=== PATIENT | male | born 1950 | race African-American/Black ===

== ENCOUNTER 2018-05-08 14:28 | Inpatient (IN) | payer OTHER ==
--- NOTE | 2018-05-08 16:06 | HP ---
CIWA Score Nausea/Vomitin-No Nausea/No Vomiting Muscle Tremors: 2 Anxiety: 2 Agitation: 1-Slight > Activity Paroxysmal Sweats: 3 Orientation: 1-Uncertain about Date Tacttile Disturbances: 2-Mild Itch/Numbness/Burn Auditory Disturbances: 0-None Visual Disturbances: 0-None Headache: 0-None Present CIWA-Ar Total Score: 11 - Admission Criteria OASAS Guidelines: Admission for Medically Managed Detox: Requires at least one of the followin. CIWA greater than 12 2. Seizures within the past 24 hours 3. Delirium tremens within the past 24 hours 4. Hallucinations within the past 24 hours 5. Acute intervention needed for co occurring medical disorder 6. Acute intervention needed for co occurring psychiatric disorder 7. Severe withdrawal that cannot be handled at a lower level of care (continued vomiting, continued diarrhea, abnormal vital signs) requiring intravenous medication and/or fluids 8. Patient presents the following: Acute intervention needed for co-occurring med or psych disorder Admission Criteria Met: Admission criteria met Admission ROS [facility] Chief Complaint: alcohol detox Allergies/Adverse Reactions: Allergies Allergy/AdvReac Type Severity Reaction Status Date / Time Sulfa (Sulfonamide Allergy Mild Hives Verified 05/08/18 15:32 Antibiotics) History of Present Illness: 68 yo male with hx of nicotine, alcohol, and crack / cocaine dependence is here seeking detox. Reports needs to drink upon awakening every morning. PMHX: DMII, HTN, HDL. Denies psychiatric hx but currently takes haldol. Denies denies suicidal / homicidla idaiet of or hx odf suicide attempt. Denies visual / auditory hallucinations. Denies hx of seizures or blackouts. 13 years sobriety , reports relapse in early Exam Limitations: No Limitations - Ebola screening Have you traveled outside of the country in the last 21 days: No Have you had contact with anyone from an Ebola affected area: No Do you have a fever: No - Review of Systems Constitutional: Diaphoresis, Changes in sleep, Unintentional Wgt. Loss, Other ( " hot flashes") EENT: reports: No Symptoms Reported Respiratory: reports: No Symptoms reported Cardiac: reports: No Symptoms Reported GI: reports: Poor Fluid Intake, Indigestion, Other (gas) : reports: No Symptoms Reported Musculoskeletal: reports: Back Pain Integumentary: reports: No Symptoms Reported Neuro: reports: Tingling, Dizziness Endocrine: reports: Increased Thirst Hematology: reports: No Symptoms Reported Psychiatric: reports: Orientated x3, Anxious Other Systems: Reviewed and Negative Patient History - Patient Medical History Hx Anemia: No Hx Asthma: No Hx Chronic Obstructive Pulmonary Disease (COPD): No Hx Cancer: No Hx Cardiac Disorders: No Hx Congestive Heart Failure: No Hx Hypertension: Yes Hx Hypercholesterolemia: No Hx Pacemaker: No HX Cerebrovascular Accident: No Hx Seizures: No Hx Dementia: No Hx Diabetes: Yes Hx Gastrointestinal Disorders: No Hx Liver Disease: No Hx Genitourinary Disorders: No Hx Sexually Transmitted Disorders: No Hx Renal Disease (ESRD): No Hx Thyroid Disease: No Hx Human Immunodeficiency Virus (HIV): No (NEGATIVE IN 2011) Hx Hepatitis C: No Hx Depression: No Hx Suicide Attempt: No Hx Bipolar Disorder: No Hx Schizophrenia: No - Patient Surgical History Past Surgical History: Yes Other Surgical History: hernia repair - SITE UNKNOWN ! Anesthesia Reaction: No - PPD History Previous Implant?: No (hx PPD + and treated ) Documented Results: Negative w/o proof PPD to be Administered?: No - Smoking Cessation Smoking history: Current every day smoker Aproximately how many cigarettes per day: 10 Hx Chewing Tobacco Use: No Initiated information on smoking cessation: Yes 'Breaking Loose' booklet given: 05/08/18 - Substance & Tx. History Hx Alcohol Use: Yes Hx Substance Use: Yes Substance Use Type: Alcohol Hx Substance Use Treatment: Yes ([facility] 2012) - Substances abused Alcohol Substance route: Oral Frequency: Daily Amount used: 3 pt. vodka, Age of first use: 19 (reports drinking this amount for "couple of years") Date of last use: 05/08/18 Crack Substance route: Smoking Frequency: Daily Amount used: $40 Age of first use: 31 Date of last use: 05/07/18 Family Disease History - Family Disease History Family History: Denies Admission Physical Exam BHS - Vital Signs Vital Signs: Vital Signs - 24 hr 05/08/18 15:29 Temperature 98.1 F Pulse Rate 72 Respiratory 18 Rate Blood Pressure 147/80 - Physical General Appearance: Yes: Disheveled, Obese, Sweating, Anxious HEENTM: Yes: EOMI, Hearing grossly Normal, Normal ENT Inspection, Normocephalic , Normal Voice, GERALD, Pharynx Normal, Tm's normal, Other (cheilitis, edentulous) Respiratory: Yes: Chest Non-Tender, Lungs Clear, Normal Breath Sounds, No Respiratory Distress, No Accessory Muscle Use Neck: Yes: Within Normal Limits Breast: Yes: Breast Exam Deferred Cardiology: Yes: Regular Rhythm, Regular Rate Abdominal: Yes: Protuberent Genitourinary: Yes: Within Normal Limits Back: Yes: Normal Inspection Musculoskeletal: Yes: Back pain Extremities: Yes: Normal Capillary Refill, Normal Inspection, Normal Range of Motion, Other (+ varicose veins on b/t) Neurological: Yes: account receivable clerk II-XII NML intact, Fully Oriented, Alert, Motor Strength 5/5, Other (flat affect) Integumentary: Yes: Normal Color, Warm, Diaphoresis Lymphatic: Yes: Within Normal Limits - Diagnostic (1) Alcohol dependence with withdrawal Current Visit: Yes Status: Acute Qualifiers: Complication of substance-induced condition: uncomplicated Qualified Code(s ): F10.230 - Alcohol dependence with withdrawal, uncomplicated (2) Obese Current Visit: Yes Status: Chronic Qualifiers: Obesity classification: adult class 2 (BMI 35 - 39.9) (3) Psychiatric disorder Current Visit: Yes Status: Suspected (4) DM Diabetes mellitus type 2 Current Visit: Yes Status: Chronic (5) Essential hypertension Current Visit: Yes Status: Chronic Cleared for Admission S - Detox or Rehab S Level of Care: Medically Managed Detox Regimen/Protocol: Librium Breathalyzer - Breathalyzer Breathalyzer: 0 Urine Drug Screen - Test Device Lot number: [id number] Expiration date: 01/05/20 - Control Is test valid?: Yes - Results Drug screen NEGATIVE: No Urine drug screen results: [facility]-Cocaine Inpatient Rehab Admission - Rehab Decision to Admit Inpatient rehab admission?: No
[2018-05-08] MEDS ORDERED: MAGNESIUM CITRATE 300 ML BOTTLE PO PRN (16:19)
[2018-05-08] MEDS ORDERED: chlordiazePOXIDE HCL 25 MG CAPSULE PO PRN (16:19)
[2018-05-08] MEDS ORDERED: hydrOXYzine PAMOATE 25 MG CAPSULE (FP) PO PRN (16:19)
[2018-05-08] MEDS ORDERED: IBUPROFEN 400 MG TABLET (FP) PO PRN (16:19)
[2018-05-08] MEDS ORDERED: MAGNESIUM HYDROX 2400MG/30ML ORAL SUSPENSION 30 ML CUP PO PRN (16:19)
[2018-05-08] MEDS ORDERED: MAG HYDROX/AL HYDROX/SIMETH 30 ML UNIT-DOSE CUP PO PRN (16:19)
[2018-05-08] MEDS ORDERED: METHOCARBAMOL 500 MG TABLET PO PRN (16:19)
[2018-05-08] MEDS ORDERED: NICOTINE POLACRILEX 2 MG GUM BUC PRN (16:19)
[2018-05-08] MEDS ORDERED: MENTHOL/PHENOL 1 EACH UD MM PRN (16:19)
[2018-05-08] MEDS ORDERED: BISMUTH SUBSALICYLATE 524 MG/30 ML UD PO PRN (16:19)
[2018-05-08] MEDS ORDERED: ACETAMINOPHEN 325 MG TABLET (FP) PO PRN ×2 (16:19)
[2018-05-08] MEDS: chlordiazePOXIDE HCL 25 MG CAPSULE PO SCH (22:29)
[2018-05-08] MEDS: ATORVASTATIN CA 10 MG TABLET (FP) PO SCH (22:29)
[2018-05-08] MEDS: MELATONIN 5 MG TABLETS PO PRN (22:29)
[2018-05-08] MEDS: THIAMINE HCL 100 MG TABLET (FP) PO SCH (22:29)
[2018-05-09 00:49] LABS: EPI CELLS 1.7 /HPF (0-5); URINE APPEARANCE CLOUDY; URINE BACTERIA 3334.9 /hpf (NEGATIVE); URINE BILIRUBIN 1+ (NEGATIVE); URINE CASTS 77 /hpf (0-8); URINE COLOR DK YELLOW; URINE GLUCOSE (UA) NEGATIVE (NEGATIVE); URINE KETONE TRACE (NEGATIVE); URINE LEUK ESTERASE 2+ (NEGATIVE); URINE NITRITE POSITIVE (NEGATIVE); URINE PROTEIN TRACE (NEGATIVE); URINE RBC 2 /hpf (0-4); URINE WBC 76 /hpf (0-5)
[2018-05-09] MEDS: chlordiazePOXIDE HCL 25 MG CAPSULE PO SCH ×4 (05:12→22:09)
[2018-05-09] MEDS: metFORMIN HCL 500 MG TABLET (FP) PO SCH ×2 (07:49→17:56)
[2018-05-09 10:17] LABS: ALK PHOS 86 U/L (45-117); BILIRUBIN,TOTAL 0.6 mg/dL (0.2-1); BLOOD UREA NITROGEN 11 mg/dL (7-18); CALCIUM 8.5 mg/dL (8.5-10.1); CHLORIDE 104 mmol/L (98-107); CO2 28 mmol/L (21-32); CREATININE 0.9 mg/dL (0.55-1.3); GLUCOSE,RANDOM 126 mg/dL (74-106); POTASSIUM 3.8 mmol/L (3.5-5.1); SGOT/AST 18 U/L (15-37); SGPT/ALT 24 U/L (13-61); SODIUM 140 mmol/L (136-145); TOT PROT 6.2 g/dl (6.4-8.2)
[2018-05-09 10:19] LABS: ANION GAP 7 MMOL/L (8-16)
[2018-05-09 10:25] LABS: HEMATOCRIT 42.3 % (35.4-49); HEMOGLOBIN 13.9 GM/dL (11.7-16.9); MCHC 32.8 g/dl (32.0-35.9); MEAN CELL VOLUME 88.4 fl (80-96); MEAN PLT VOLUME 10.5 fl (7.5-11.1); PLATELET COUNT 201 K/MM3 (134-434); RBC 4.79 M/mm3 (4.00-5.60); RDW 14.7 % (11.9-15.9); WHITE BLOOD COUNT 6.4 K/mm3 (4.0-10.0)
[2018-05-09] MEDS: NICOTINE 14 MG/24 HOURS TOPICAL PATCH TD SCH (10:35)
[2018-05-09] MEDS: LISINOPRIL 20 MG TABLET (FP) PO SCH (10:35)
[2018-05-09] MEDS: PRENATAL VITAMINS W/ FOLIC ACID TABLET (FP) PO SCH (10:35)
--- NOTE | 2018-05-09 11:50 | EKG ---
Test Reason : Blood Pressure : / mmHG Vent. Rate : 073 BPM Atrial Rate : 073 BPM P-R Int : 138 ms QRS Dur : 096 ms QT Int : 418 ms P-R-T Axes : 012 006 034 degrees QTc Int : 460 ms NORMAL SINUS RHYTHM INCOMPLETE RIGHT BUNDLE BRANCH BLOCK MINIMAL VOLTAGE CRITERIA FOR LVH, MAY BE NORMAL VARIANT BORDERLINE ECG NO PREVIOUS ECGS AVAILABLE Confirmed by ALISSA GAUTHIER MD ([id number]) on 05/09/2018 11:49:59 AM Referred By: Confirmed By:ALISSA GAUTHIER MD
--- NOTE | 2018-05-09 14:59 | CONSULT ---
[facility] Psychiatric Consult - Data Date of interview: 05/09/18 Admission source: [facility] Identifying data: Patient is a 68 year old male, , father of three, unemployed, domiciled, and is supported by [facility]. This is one of multiple admissions for patient. Patient admitted to for alcohol and cocaine dependence. Substance Abuse History: Smoking Cessation. Smoking history: Current every day smoker. Aproximately how many cigarettes per day: 10. Hx Chewing Tobacco Use: No. Initiated information on smoking cessation: Yes. 'Breaking Loose' booklet given: 05/08/18. - Substance & Tx. History. Hx Alcohol Use: Yes. Hx Substance Use: Yes. Substance Use Type: Alcohol. Hx Substance Use Treatment: Yes ([facility] 2012). - Substances abused. Alcohol. Substance route: Oral. Frequency: Daily. Amount used: 3 pt. vodka,. Age of first use: 19 (reports drinking this amount for "couple of years"). Date of last use: 05/08/18. Crack. Substance route: Smoking. Frequency: Daily. Amount used: $40. Age of first use: 31. Date of last use: 05/07/18 Medical History: hypertension, diabetes, hernia surgery Psychiatric History: Patient is a poor historian. Patient denies h/o psychiatric hospitalizations, and suicide attempt. Outpatient psychiatric care is provided at his place of residence. He reports seeing the psychiatrist monthy. Patient unable to recall the medication he prescribes. He reports medication noncompliance. Physical/Sexual Abuse/Trauma History: refuses to answer. Mental Status Exam - Mental Status Exam Alert and Oriented to: Time, Place, Person Cognitive Function: Fair Patient Appearance: Disheveled (maldorous) Mood: Irritable Affect: Flat Patient Behavior: Cooperative Speech Pattern: Clear Voice Loudness: Normal Thought Process: Goal Oriented Thought Disorder: Not Present Hallucinations: Denies Suicidal Ideation: Denies Homicidal Ideation: Denies Insight/Judgement: Poor Sleep: Fair Appetite: Fair Muscle strength/Tone: Normal Gait/Station: Normal Psychiatric Findings - Problem List ([place] 1, 2,3) (1) Cocaine dependence Current Visit: Yes Status: Acute (2) Alcohol dependence with withdrawal Current Visit: Yes Status: Acute Qualifiers: Complication of substance-induced condition: uncomplicated Qualified Code(s ): F10.230 - Alcohol dependence with withdrawal, uncomplicated (3) Mood disorder Current Visit: Yes Status: Suspected (4) Substance induced mood disorder Current Visit: Yes Status: Acute - Initial Treatment Plan Initial Treatment Plan: Psychoeducation provided. Detoxification in progress. [facility] called at [phone] and able to speak to pharmacy staff. As per pharmacy staff, patient is prescribed haldol 2mg. The prescription was sent on 04/11/18 but patient did not warp picker the prescription. The most recent haldol 2mg prescription was picked up in September of 2017. At this time haldol 2mg will not be ordered as patient reports noncompliance and is refusing accept medication.
--- NOTE | 2018-05-09 16:18 | PN ---
S CIWA - CIWA Score Nausea/Vomitin-No Nausea/No Vomiting Muscle Tremors: 3 Anxiety: 3 Agitation: 1-Slight > Activity Paroxysmal Sweats: No Perspiration Orientation: 0-Oriented Tacttile Disturbances: 0-None Auditory Disturbances: 2-Mild Harshness/Frighten Visual Disturbances: 3-Moderate Sensitivity Headache: 0-None Present CIWA-Ar Total Score: 12 BHS Progress Note (SOAP) Subjective: Tremors, Anxious, Interrupted Sleep. Objective: PATIENT A & O X 3. IN NO ACUTE DISTRESS. 05/09/18 16:15 Vital Signs Temperature 97.6 F 05/09/18 13:46 Pulse Rate 70 05/09/18 13:46 Respiratory Rate 18 05/09/18 13:46 Blood Pressure 133/83 05/09/18 13:46 O2 Sat by Pulse Oximetry (%) Laboratory Tests 05/08/18 05/08/18 05/09/18 16:40 22:49 05:11 WBC RBC Hgb Hct MCV MCH MCHC RDW Plt Count MPV Sodium Potassium Chloride Carbon Dioxide Anion Gap BUN Creatinine Creat Clearance w eGFR POC Glucometer 162 115 Random Glucose Calcium Total Bilirubin AST ALT Alkaline Phosphatase Total Protein Albumin Urine Color Dk yellow Urine Appearance Cloudy Urine pH 5.0 Ur Specific [place] 1.034 Urine Protein Trace Urine Glucose (UA) Negative Urine Ketones Trace H Urine Blood Negative Urine Nitrite Positive H Urine Bilirubin 1+ H Urine Urobilinogen 1.0 Ur Leukocyte Esterase 2+ H Urine WBC (Auto) 76 Urine RBC (Auto) 2 Urine Casts (Auto) 77 U Epithel Cells (Auto) 1.7 Urine Bacteria (Auto) 3334.9 RPR Titer HIV 1&2 Antibody Screen HIV P24 Antigen 05/09/18 05/09/18 05/09/18 07:00 07:00 07:00 WBC 6.4 RBC 4.79 Hgb 13.9 Hct 42.3 MCV 88.4 MCH 29.0 MCHC 32.8 RDW 14.7 Plt Count 201 MPV 10.5 Sodium 140 Potassium 3.8 Chloride 104 Carbon Dioxide 28 Anion Gap 7 L BUN 11 Creatinine 0.9 Creat Clearance w eGFR 84.17 POC Glucometer Random Glucose 126 H Calcium 8.5 Total Bilirubin 0.6 AST 18 ALT 24 Alkaline Phosphatase 86 Total Protein 6.2 L Albumin 3.0 L Urine Color Urine Appearance Urine pH Ur Specific [place] Urine Protein Urine Glucose (UA) Urine Ketones Urine Blood Urine Nitrite Urine Bilirubin Urine Urobilinogen Ur Leukocyte Esterase Urine WBC (Auto) Urine RBC (Auto) Urine Casts (Auto) U Epithel Cells (Auto) Urine Bacteria (Auto) RPR Titer Nonreactive HIV 1&2 Antibody Screen HIV P24 Antigen 05/09/18 07:00 WBC RBC Hgb Hct MCV MCH MCHC RDW Plt Count MPV Sodium Potassium Chloride Carbon Dioxide Anion Gap BUN Creatinine Creat Clearance w eGFR POC Glucometer Random Glucose Calcium Total Bilirubin AST ALT Alkaline Phosphatase Total Protein Albumin Urine Color Urine Appearance Urine pH Ur Specific [place] Urine Protein Urine Glucose (UA) Urine Ketones Urine Blood Urine Nitrite Urine Bilirubin Urine Urobilinogen Ur Leukocyte Esterase Urine WBC (Auto) Urine RBC (Auto) Urine Casts (Auto) U Epithel Cells (Auto) Urine Bacteria (Auto) RPR Titer HIV 1&2 Antibody Screen Negative HIV P24 Antigen Negative LABS NOTED. NO URINARY COMPLAINTS (BURNING, PAIN, FREQUENCY, URGENCY, HESITANCY) OFFERED BY PATIENT DURING TODAY'S ROUNDS ASSESSMENT. 05/09/18 16:18 Assessment: 05/09/18 16:16 WITHDRAWAL SYMPTOMS. Plan: CONTINUE DETOX. INCREASE DAILY PO FLUID INTAKE. REPEAT UA FOR ADMISSION UA ABNORMALITIES.
[2018-05-09] MEDS: ATORVASTATIN CA 10 MG TABLET (FP) PO SCH (22:09)
[2018-05-09] MEDS: MELATONIN 5 MG TABLETS PO PRN (22:09)
[2018-05-09] MEDS: THIAMINE HCL 100 MG TABLET (FP) PO SCH (22:09)
[2018-05-10] MEDS: chlordiazePOXIDE HCL 25 MG CAPSULE PO SCH ×3 (05:17→17:56)
[2018-05-10] MEDS: metFORMIN HCL 500 MG TABLET (FP) PO SCH ×2 (06:38→17:56)
[2018-05-10] MEDS: PRENATAL VITAMINS W/ FOLIC ACID TABLET (FP) PO SCH (10:17)
[2018-05-10] MEDS: LISINOPRIL 20 MG TABLET (FP) PO SCH (10:17)
[2018-05-10] MEDS: NICOTINE 14 MG/24 HOURS TOPICAL PATCH TD SCH (10:18)
--- NOTE | 2018-05-10 12:10 | PN ---
S CIWA - CIWA Score Nausea/Vomitin Muscle Tremors: 2 Anxiety: 2 Agitation: 2 Paroxysmal Sweats: 2 Orientation: 0-Oriented Tacttile Disturbances: 1-Very Mild Itch/Numbness Auditory Disturbances: 1-Very Mild Visual Disturbances: 0-None Headache: 2-Mild CIWA-Ar Total Score: 14 S Progress Note (SOAP) Subjective: alert,irritable anxious,interrupted sleep,tremor Objective: 05/10/18 12:08 Vital Signs Temperature 98.0 F 05/10/18 10:16 Pulse Rate 72 05/10/18 10:16 Respiratory Rate 20 05/10/18 10:16 Blood Pressure 141/76 05/10/18 10:16 O2 Sat by Pulse Oximetry (%) 05/10/18 12:09 Laboratory Last Values WBC 6.4 K/mm3 (4.0-10.0) 05/09/18 07:00 RBC 4.79 M/mm3 (4.00-5.60) 05/09/18 07:00 Hgb 13.9 GM/dL (11.7-16.9) 05/09/18 07:00 Hct 42.3 % (35.4-49) 05/09/18 07:00 MCV 88.4 fl (80-96) 05/09/18 07:00 MCH 29.0 pg (25.7-33.7) 05/09/18 07:00 MCHC 32.8 g/dl (32.0-35.9) 05/09/18 07:00 RDW 14.7 % (11.9-15.9) 05/09/18 07:00 Plt Count 201 K/MM3 (134-434) 05/09/18 07:00 MPV 10.5 fl (7.5-11.1) 05/09/18 07:00 Sodium 140 mmol/L (136-145) 05/09/18 07:00 Potassium 3.8 mmol/L (3.5-5.1) 05/09/18 07:00 Chloride 104 mmol/L (98-107) 05/09/18 07:00 Carbon Dioxide 28 mmol/L (21-32) 05/09/18 07:00 Anion Gap 7 MMOL/L (8-16) L 05/09/18 07:00 BUN 11 mg/dL (7-18) 05/09/18 07:00 Creatinine 0.9 mg/dL (0.55-1.3) 05/09/18 07:00 Creat Clearance w eGFR 84.17 (>60) 05/09/18 07:00 POC Glucometer 135 UNITS (80-120) 05/10/18 05:16 Random Glucose 126 mg/dL (74-106) H 05/09/18 07:00 Calcium 8.5 mg/dL (8.5-10.1) 05/09/18 07:00 Total Bilirubin 0.6 mg/dL (0.2-1) 05/09/18 07:00 AST 18 U/L (15-37) 05/09/18 07:00 ALT 24 U/L (13-61) 05/09/18 07:00 Alkaline Phosphatase 86 U/L (45-117) 05/09/18 07:00 Total Protein 6.2 g/dl (6.4-8.2) L 05/09/18 07:00 Albumin 3.0 g/dl (3.4-5.0) L 05/09/18 07:00 Urine Color Dk yellow 05/08/18 22:49 Urine Appearance Cloudy 05/08/18 22:49 Urine pH 5.0 (5.0-8.0) 05/08/18 22:49 Ur Specific [place] 1.034 (1.010-1.035) 05/08/18 22:49 Urine Protein Trace (NEGATIVE) 05/08/18 22:49 Urine Glucose (UA) Negative (NEGATIVE) 05/08/18 22:49 Urine Ketones Trace (NEGATIVE) H 05/08/18 22:49 Urine Blood Negative (NEGATIVE) 05/08/18 22:49 Urine Nitrite Positive (NEGATIVE) H 05/08/18 22:49 Urine Bilirubin 1+ (NEGATIVE) H 05/08/18 22:49 Urine Urobilinogen 1.0 mg/dL (0.2-1.0) 05/08/18 22:49 Ur Leukocyte Esterase 2+ (NEGATIVE) H 05/08/18 22:49 Urine WBC (Auto) 76 /hpf (0-5) 05/08/18 22:49 Urine RBC (Auto) 2 /hpf (0-4) 05/08/18 22:49 Urine Casts (Auto) 77 /hpf (0-8) 05/08/18 22:49 U Epithel Cells (Auto) 1.7 /HPF (0-5) 05/08/18 22:49 Urine Bacteria (Auto) 3334.9 /hpf (NEGATIVE) 05/08/18 22:49 RPR Titer Nonreactive (NONREACTIVE) 05/09/18 07:00 HIV 1&2 Antibody Screen Negative 05/09/18 07:00 HIV P24 Antigen Negative 05/09/18 07:00 Assessment: 05/10/18 12:14 withdrawal symptom denied urinary problem Plan: continue detox,encourage oral fluid,repeat ua
[2018-05-10 19:00] LABS: EPI CELLS 0.2 /HPF (0-5); PH,URINE 5.5 (5.0-8.0); URINE APPEARANCE CLEAR; URINE BACTERIA 5015.1 /hpf (NEGATIVE); URINE BILIRUBIN NEGATIVE (NEGATIVE); URINE CASTS 3 /hpf (0-8); URINE COLOR YELLOW; URINE GLUCOSE (UA) NEGATIVE (NEGATIVE); URINE KETONE NEGATIVE (NEGATIVE); URINE LEUK ESTERASE 3+ (NEGATIVE); URINE NITRITE NEGATIVE (NEGATIVE); URINE PROTEIN NEGATIVE (NEGATIVE); URINE RBC 1 /hpf (0-4); URINE WBC 40 /hpf (0-5)
[2018-05-10] MEDS: THIAMINE HCL 100 MG TABLET (FP) PO SCH (22:13)
[2018-05-10] MEDS: ATORVASTATIN CA 10 MG TABLET (FP) PO SCH (22:13)
[2018-05-10] MEDS: chlordiazePOXIDE HCL 10 MG CAPSULE PO SCH (22:14)
[2018-05-10] MEDS ORDERED: chlordiazePOXIDE HCL 10 MG CAPSULE PO PRN (23:00)
[2018-05-11] MEDS: chlordiazePOXIDE HCL 10 MG CAPSULE PO SCH ×3 (05:41→17:34)
[2018-05-11] MEDS: metFORMIN HCL 500 MG TABLET (FP) PO SCH ×2 (07:45→17:34)
[2018-05-11] MEDS: PRENATAL VITAMINS W/ FOLIC ACID TABLET (FP) PO SCH (10:08)
[2018-05-11] MEDS: LISINOPRIL 20 MG TABLET (FP) PO SCH (10:08)
[2018-05-11] MEDS: NICOTINE 14 MG/24 HOURS TOPICAL PATCH TD SCH (10:09)
--- NOTE | 2018-05-11 13:56 | PN ---
S Progress Note (SOAP) Subjective: Patient denies current Withdrawal / Detox symptoms and reports that he feels well overall. Objective: PATIENT A & O X 3, OBSERVED AMBULATING ON UNIT. IN NO ACUTE DISTRESS. 05/11/18 14:37 Vital Signs Temperature 96.9 F L 05/11/18 13:16 Pulse Rate 77 05/11/18 13:16 Respiratory Rate 18 05/11/18 13:16 Blood Pressure 126/66 05/11/18 13:16 O2 Sat by Pulse Oximetry (%) Laboratory Tests 05/08/18 05/08/18 05/09/18 16:40 22:49 05:11 WBC RBC Hgb Hct MCV MCH MCHC RDW Plt Count MPV Sodium Potassium Chloride Carbon Dioxide Anion Gap BUN Creatinine Creat Clearance w eGFR POC Glucometer 162 115 Random Glucose Calcium Total Bilirubin AST ALT Alkaline Phosphatase Total Protein Albumin Urine Color Dk yellow Urine Appearance Cloudy Urine pH 5.0 Ur Specific [place] 1.034 Urine Protein Trace Urine Glucose (UA) Negative Urine Ketones Trace H Urine Blood Negative Urine Nitrite Positive H Urine Bilirubin 1+ H Urine Urobilinogen 1.0 Ur Leukocyte Esterase 2+ H Urine WBC (Auto) 76 Urine RBC (Auto) 2 Urine Casts (Auto) 77 U Epithel Cells (Auto) 1.7 Urine Bacteria (Auto) 3334.9 RPR Titer HIV 1&2 Antibody Screen HIV P24 Antigen 05/09/18 05/09/18 05/09/18 07:00 07:00 07:00 WBC 6.4 RBC 4.79 Hgb 13.9 Hct 42.3 MCV 88.4 MCH 29.0 MCHC 32.8 RDW 14.7 Plt Count 201 MPV 10.5 Sodium 140 Potassium 3.8 Chloride 104 Carbon Dioxide 28 Anion Gap 7 L BUN 11 Creatinine 0.9 Creat Clearance w eGFR 84.17 POC Glucometer Random Glucose 126 H Calcium 8.5 Total Bilirubin 0.6 AST 18 ALT 24 Alkaline Phosphatase 86 Total Protein 6.2 L Albumin 3.0 L Urine Color Urine Appearance Urine pH Ur Specific [place] Urine Protein Urine Glucose (UA) Urine Ketones Urine Blood Urine Nitrite Urine Bilirubin Urine Urobilinogen Ur Leukocyte Esterase Urine WBC (Auto) Urine RBC (Auto) Urine Casts (Auto) U Epithel Cells (Auto) Urine Bacteria (Auto) RPR Titer Nonreactive HIV 1&2 Antibody Screen HIV P24 Antigen 05/09/18 05/09/18 05/10/18 07:00 16:32 05:16 WBC RBC Hgb Hct MCV MCH MCHC RDW Plt Count MPV Sodium Potassium Chloride Carbon Dioxide Anion Gap BUN Creatinine Creat Clearance w eGFR POC Glucometer 146 135 Random Glucose Calcium Total Bilirubin AST ALT Alkaline Phosphatase Total Protein Albumin Urine Color Urine Appearance Urine pH Ur Specific [place] Urine Protein Urine Glucose (UA) Urine Ketones Urine Blood Urine Nitrite Urine Bilirubin Urine Urobilinogen Ur Leukocyte Esterase Urine WBC (Auto) Urine RBC (Auto) Urine Casts (Auto) U Epithel Cells (Auto) Urine Bacteria (Auto) RPR Titer HIV 1&2 Antibody Screen Negative HIV P24 Antigen Negative 05/10/18 05/10/18 05/11/18 14:30 16:37 05:39 WBC RBC Hgb Hct MCV MCH MCHC RDW Plt Count MPV Sodium Potassium Chloride Carbon Dioxide Anion Gap BUN Creatinine Creat Clearance w eGFR POC Glucometer 133 136 Random Glucose Calcium Total Bilirubin AST ALT Alkaline Phosphatase Total Protein Albumin Urine Color Yellow Urine Appearance Clear Urine pH 5.5 Ur Specific [place] 1.006 L Urine Protein Negative Urine Glucose (UA) Negative Urine Ketones Negative Urine Blood Negative Urine Nitrite Negative Urine Bilirubin Negative Urine Urobilinogen 1.0 Ur Leukocyte Esterase 3+ H Urine WBC (Auto) 40 Urine RBC (Auto) 1 Urine Casts (Auto) 3 U Epithel Cells (Auto) 0.2 Urine Bacteria (Auto) 5015.1 RPR Titer HIV 1&2 Antibody Screen HIV P24 Antigen LABS NOTED. RESULTS OF REPEAT UA NORED. PATIENT DENIES ANY UNUSUAL URINARY COMPLAINTS (BURNING, PAIN, FREQUENCY, URGENCY , HESITANCY). NO FURTHER ACTION TO BE TAKEN AT THIS TIME. 05/11/18 14:37 Assessment: 05/11/18 14:38 WITHDRAWAL SYMPTOMS. Plan: CONTINUE DETOX. INCREASE DAILY PO FLUID INTAKE.
[2018-05-11] MEDS: ATORVASTATIN CA 10 MG TABLET (FP) PO SCH (22:32)
[2018-05-11] MEDS: THIAMINE HCL 100 MG TABLET (FP) PO SCH (22:32)
[2018-05-11] MEDS ORDERED: chlordiazePOXIDE HCL 10 MG CAPSULE PO SCH (23:00)
[2018-05-12] MEDS: metFORMIN HCL 500 MG TABLET (FP) PO SCH (06:36)
--- NOTE | 2018-05-12 09:24 | DS ---
[facility] Detox Discharge Summary Admission Date: 05/08/18 Discharge Date: 05/12/18 - History Present History: Alcohol Dependence Additional Comments: 68 years old male admitted on 05/08/18 for alcohol withdrawal stabilization completed detox regimen after[facility] the patient return to [facility] for alcohol rehab admission Pertinent Past History: keep medication list in wallet bring in medication list and lab report to follow up appointment - Physical Exam Results Vital Signs: Vital Signs Temperature 98.2 F 05/12/18 05:55 Pulse Rate 67 05/12/18 05:55 Respiratory Rate 18 05/12/18 06:30 Blood Pressure 152/92 05/12/18 05:55 O2 Sat by Pulse Oximetry (%) Pertinent Admission Physical Exam Findings: alcohol withdrawal sx Laboratory Last Values WBC 6.4 K/mm3 (4.0-10.0) 05/09/18 07:00 RBC 4.79 M/mm3 (4.00-5.60) 05/09/18 07:00 Hgb 13.9 GM/dL (11.7-16.9) 05/09/18 07:00 Hct 42.3 % (35.4-49) 05/09/18 07:00 MCV 88.4 fl (80-96) 05/09/18 07:00 MCH 29.0 pg (25.7-33.7) 05/09/18 07:00 MCHC 32.8 g/dl (32.0-35.9) 05/09/18 07:00 RDW 14.7 % (11.9-15.9) 05/09/18 07:00 Plt Count 201 K/MM3 (134-434) 05/09/18 07:00 MPV 10.5 fl (7.5-11.1) 05/09/18 07:00 Sodium 140 mmol/L (136-145) 05/09/18 07:00 Potassium 3.8 mmol/L (3.5-5.1) 05/09/18 07:00 Chloride 104 mmol/L (98-107) 05/09/18 07:00 Carbon Dioxide 28 mmol/L (21-32) 05/09/18 07:00 Anion Gap 7 MMOL/L (8-16) L 05/09/18 07:00 BUN 11 mg/dL (7-18) 05/09/18 07:00 Creatinine 0.9 mg/dL (0.55-1.3) 05/09/18 07:00 Creat Clearance w eGFR 84.17 (>60) 05/09/18 07:00 POC Glucometer 165 UNITS (80-120) 05/12/18 05:28 Random Glucose 126 mg/dL (74-106) H 05/09/18 07:00 Calcium 8.5 mg/dL (8.5-10.1) 05/09/18 07:00 Total Bilirubin 0.6 mg/dL (0.2-1) 05/09/18 07:00 AST 18 U/L (15-37) 05/09/18 07:00 ALT 24 U/L (13-61) 05/09/18 07:00 Alkaline Phosphatase 86 U/L (45-117) 05/09/18 07:00 Total Protein 6.2 g/dl (6.4-8.2) L 05/09/18 07:00 Albumin 3.0 g/dl (3.4-5.0) L 05/09/18 07:00 Urine Color Yellow 05/10/18 14:30 Urine Appearance Clear 05/10/18 14:30 Urine pH 5.5 (5.0-8.0) 05/10/18 14:30 Ur Specific [place] 1.006 (1.010-1.035) L 05/10/18 14:30 Urine Protein Negative (NEGATIVE) 05/10/18 14:30 Urine Glucose (UA) Negative (NEGATIVE) 05/10/18 14:30 Urine Ketones Negative (NEGATIVE) 05/10/18 14:30 Urine Blood Negative (NEGATIVE) 05/10/18 14:30 Urine Nitrite Negative (NEGATIVE) 05/10/18 14:30 Urine Bilirubin Negative (NEGATIVE) 05/10/18 14:30 Urine Urobilinogen 1.0 mg/dL (0.2-1.0) 05/10/18 14:30 Ur Leukocyte Esterase 3+ (NEGATIVE) H 05/10/18 14:30 Urine WBC (Auto) 40 /hpf (0-5) 05/10/18 14:30 Urine RBC (Auto) 1 /hpf (0-4) 05/10/18 14:30 Urine Casts (Auto) 3 /hpf (0-8) 05/10/18 14:30 U Epithel Cells (Auto) 0.2 /HPF (0-5) 05/10/18 14:30 Urine Bacteria (Auto) 5015.1 /hpf (NEGATIVE) 05/10/18 14:30 RPR Titer Nonreactive (NONREACTIVE) 05/09/18 07:00 HIV 1&2 Antibody Screen Negative 05/09/18 07:00 HIV P24 Antigen Negative 05/09/18 07:00 lab noted - Treatment Hospital Course: Detox Protocol Followed, Detoxed Safely, Responded well, Discharged Condition Good, Rehab Referral Accepted Patient has Accepted a [facility] Referral to: [facility] - Medication Discharge Medications: Ambulatory Orders Haloperidol [Haldol -] 2 mg PO HS 05/08/18 Atorvastatin Calcium 10 mg PO HS #14 tablet 05/12/18 Lisinopril [Prinivil -] 40 mg PO DAILY #14 tablet 05/12/18 metFORMIN HCL [Glucophage -] 500 mg PO BID #30 tablet 05/12/18 - Diagnosis (1) Schizophrenia Current Visit: Yes Status: Suspected Qualifiers: Schizophrenia type: unspecified Qualified Code(s): F20.9 - Schizophrenia, unspecified (2) Alcohol dependence with withdrawal Current Visit: Yes Status: Acute Qualifiers: Complication of substance-induced condition: uncomplicated Qualified Code(s ): F10.230 - Alcohol dependence with withdrawal, uncomplicated (3) Substance induced mood disorder Current Visit: Yes Status: Suspected (4) DM Diabetes mellitus type 2 Current Visit: Yes Status: Chronic (5) Essential hypertension Current Visit: Yes Status: Chronic - AMA Did Patient Leave Against Medical Advice: No
[2018-05-12 09:39] VITALS: BP 142/71; PULSE 74; TEMP 97
[2018-05-12 21:02] LABS: EPI CELLS 0.9 /HPF (0-5); URINE APPEARANCE CLEAR; URINE BACTERIA 3603.4 /hpf (NEGATIVE); URINE BILIRUBIN NEGATIVE (NEGATIVE); URINE CASTS 13 /hpf (0-8); URINE COLOR YELLOW; URINE GLUCOSE (UA) NEGATIVE (NEGATIVE); URINE KETONE NEGATIVE (NEGATIVE); URINE LEUK ESTERASE 2+ (NEGATIVE); URINE NITRITE POSITIVE (NEGATIVE); URINE PROTEIN NEGATIVE (NEGATIVE); URINE RBC 1 /hpf (0-4); URINE UROBILINOGEN 0.2 mg/dL (0.2-1.0); URINE WBC 33 /hpf (0-5)
== END 2018-05-12 10:36 | disposition home or self-care (01) | DRG 897 ==
LOC: YASAS 14:28 → Y3N 16:56
PROVIDERS: ADMIT Surgery; ATTEND Surgery
PROC: HZ2ZZZZ Detoxification Services for Substance Abuse Treatment (ICD-10-PCS; principal; 2018-05-08)
DX: F10.230 Alcohol dependence with withdrawal, uncomplicated (principal); F14.20 Cocaine dependence, uncomplicated; F20.9 Schizophrenia, unspecified; F39 Unspecified mood [affective] disorder; F19.24 Other psychoactive substance dependence with psychoactive substance-induced mood disorder; F99 Mental disorder, not otherwise specified; I10 Essential (primary) hypertension; E11.9 Type 2 diabetes mellitus without complications; Z79.84 Long term (current) use of oral hypoglycemic drugs; E66.9 Obesity, unspecified; Z68.36 Body mass index [BMI] 36.0-36.9, adult
CPT/HCPCS: 36415; 71045-TC-FY; 80053; 81003; 82962; 85027; 86593; 87389; 93005; 93010

== ENCOUNTER 2018-05-22 15:37 | Inpatient (IN) | payer OTHER ==
[2018-05-22 18:18] VITALS: BMI 32.5
--- NOTE | 2018-05-22 18:56 | HP ---
CIWA Score - Admission Criteria OASAS Guidelines: Admission for Medically Managed Detox: Requires at least one of the followin. CIWA greater than 12 2. Seizures within the past 24 hours 3. Delirium tremens within the past 24 hours 4. Hallucinations within the past 24 hours 5. Acute intervention needed for co occurring medical disorder 6. Acute intervention needed for co occurring psychiatric disorder 7. Severe withdrawal that cannot be handled at a lower level of care (continued vomiting, continued diarrhea, abnormal vital signs) requiring intravenous medication and/or fluids 8. Admission ROS S - HPI Chief Complaint: I am here for rehab. I was in detox and now I need rehab. Allergies/Adverse Reactions: Allergies Allergy/AdvReac Type Severity Reaction Status Date / Time Sulfa (Sulfonamide Allergy Mild Hives Verified 05/22/18 18:10 Antibiotics) History of Present Illness: pt is a 68yr old male with a history of alcohol dependence recently detox at [facility] and now is here for rehab for further treatment. Exam Limitations: No Limitations - Ebola screening Have you traveled outside of the country in the last 21 days: No Have you had contact with anyone from an Ebola affected area: No Have you been sick,other than usual withdrawal symptoms: No Do you have a fever: No - Review of Systems Constitutional: No Symptoms Reported EENT: reports: No Symptoms Reported Respiratory: reports: No Symptoms reported Cardiac: reports: No Symptoms Reported GI: reports: No Symptoms Reported : reports: No Symptoms Reported Musculoskeletal: reports: No Symptoms Reported Integumentary: reports: No Symptoms Reported Neuro: reports: No Symptoms reported Endocrine: reports: No Symptoms Reported Hematology: reports: No Symptoms Reported Psychiatric: reports: Judgement Intact, Mood/Affect Appropiate, Orientated x3, Agitated Other Systems: Reviewed and Negative Patient History - Patient Medical History Hx Anemia: No Hx Asthma: No Hx Chronic Obstructive Pulmonary Disease (COPD): No Hx Cancer: No Hx Cardiac Disorders: No Hx Congestive Heart Failure: No Hx Hypertension: Yes Hx Hypercholesterolemia: No Hx Pacemaker: No HX Cerebrovascular Accident: No Hx Seizures: No Hx Dementia: No Hx Diabetes: Yes (type 2) Hx Gastrointestinal Disorders: No Hx Liver Disease: No Hx Genitourinary Disorders: No Hx Sexually Transmitted Disorders: No Hx Renal Disease (ESRD): No Hx Thyroid Disease: No Hx Human Immunodeficiency Virus (HIV): No (NEGATIVE IN 2011) Hx Hepatitis C: No (negative) Hx Depression: No Hx Suicide Attempt: No Hx Bipolar Disorder: No Hx Schizophrenia: No - Patient Surgical History Past Surgical History: Yes Other Surgical History: hernia repair - SITE UNKNOWN ! Anesthesia Reaction: No - PPD History Previous Implant?: Yes Documented Results: Positive w/proof PPD to be Administered?: No - Reproductive History Patient is a Female of Child Bearing Age (11 -55 yrs old): No - Smoking Cessation Smoking history: Current every day smoker Aproximately how many cigarettes per day: 10 Hx Chewing Tobacco Use: No Initiated information on smoking cessation: Yes 'Breaking Loose' booklet given: 05/22/18 - Substance & Tx. History Hx Alcohol Use: Yes Hx Substance Use: Yes Substance Use Type: Alcohol, Cocaine Hx Substance Use Treatment: Yes (last detox [facility] 05/2018 completed) - Substances abused Alcohol Substance route: Oral Frequency: Daily Amount used: 3 pt. vodka, Age of first use: 19 Date of last use: 05/20/18 Crack Substance route: Smoking Frequency: Daily Amount used: $40 Age of first use: 31 Date of last use: 05/20/18 Family Disease History - Family Disease History Family History: Denies Admission Physical Exam BHS - Vital Signs Vital Signs: Vital Signs - 24 hr 05/22/18 18:12 Temperature 98.5 F Pulse Rate 69 Respiratory 18 Rate Blood Pressure 133/65 - Physical General Appearance: Yes: Appropriately Dressed, Mild Distress, Obese HEENTM: Yes: Hearing grossly Normal, Normal Voice Respiratory: Yes: Lungs Clear, Normal Breath Sounds, No Respiratory Distress Neck: Yes: No masses,lesions,Nodules Breast: Yes: Within Normal Limits Cardiology: Yes: Regular Rhythm, Regular Rate, S1, S2 Abdominal: Yes: Normal Bowel Sounds, Non Tender, Soft Genitourinary: Yes: Within Normal Limits Back: Yes: Normal Inspection Musculoskeletal: Yes: full range of Motion Extremities: Yes: Normal Capillary Refill, Normal Inspection, Non-Tender, Tremors Neurological: Yes: Fully Oriented, Alert, Normal Response Integumentary: Yes: Normal Color Lymphatic: Yes: Within Normal Limits - Diagnostic (1) Alcohol dependence with withdrawal Current Visit: Yes Status: Chronic Qualifiers: Complication of substance-induced condition: uncomplicated Qualified Code(s ): F10.230 - Alcohol dependence with withdrawal, uncomplicated (2) Cocaine dependence Current Visit: Yes Status: Chronic Qualifiers: Substance use status: uncomplicated Qualified Code(s): F14.20 - Cocaine dependence, uncomplicated (3) DM Diabetes mellitus type 2 Current Visit: No Status: Chronic (4) Essential hypertension Current Visit: No Status: Chronic (5) Obese Current Visit: Yes Status: Chronic Qualifiers: Obesity classification: adult class 2 (BMI 35 - 39.9) (6) Psychiatric disorder Current Visit: No Status: Suspected (7) Schizophrenia Current Visit: No Status: Suspected Qualifiers: Schizophrenia type: unspecified Qualified Code(s): F20.9 - Schizophrenia, unspecified (8) Substance induced mood disorder Current Visit: No Status: Suspected Cleared for Admission BHS - Detox or Rehab S Level of Care: Medically Managed Claeared for Rehab Admission: Yes Breathalyzer - Breathalyzer Breathalyzer: 0 Urine Drug Screen - Test Device Lot number: [id number] Expiration date: 01/05/20 - Control Is test valid?: Yes - Results Drug screen NEGATIVE: No Urine drug screen results: TERRY-Cocaine, BZO-Benzodiazepines Inpatient Rehab Admission - Rehab Decision to Admit Inpatient rehab admission?: Yes - Initial Determination Are CD services needed?: Yes Free of communicable disease: Yes Not in need of hospitalization: Yes - Rehab Admission Criteria Previous failed treatment: Yes Poor recovery environment: Yes Comorbidities: Yes Lacks judgement: Yes Patient is meeting Inpatient Rehab admission criteria:: Yes
[2018-05-22] MEDS ORDERED: ACETAMINOPHEN 325 MG TABLET (FP) PO PRN (19:02)
[2018-05-22] MEDS ORDERED: guaiFENesin 200 MG/10 ML 10 ML UNIT-DOSE CUPS PO PRN (19:02)
[2018-05-22] MEDS ORDERED: MAGNESIUM CITRATE 300 ML BOTTLE PO PRN (19:02)
[2018-05-22] MEDS ORDERED: IBUPROFEN 400 MG TABLET (FP) PO PRN (19:02)
[2018-05-22] MEDS ORDERED: LOPERAMIDE HCL 2 MG CAPSULE PO PRN (19:02)
[2018-05-22] MEDS ORDERED: MAGNESIUM HYDROX 2400MG/30ML ORAL SUSPENSION 30 ML CUP PO PRN (19:02)
[2018-05-22] MEDS ORDERED: MENTHOL/PHENOL 1 EACH UD MM PRN (19:02)
[2018-05-22] MEDS ORDERED: P-EPHED 60MG/TRIPROLIDI 2.5MG TABLET PO PRN (19:02)
[2018-05-22] MEDS ORDERED: MAG HYDROX/AL HYDROX/SIMETH 30 ML UNIT-DOSE CUP PO PRN (19:02)
[2018-05-22] MEDS: ATORVASTATIN CA 10 MG TABLET (FP) PO SCH (21:17)
[2018-05-22] MEDS: THIAMINE HCL 100 MG TABLET (FP) PO SCH (21:17)
[2018-05-22] MEDS ORDERED: MELATONIN 5 MG TABLETS PO PRN (22:00)
[2018-05-23 01:04] LABS: URINE APPEARANCE Clear; URINE BILIRUBIN 1+ (NEGATIVE); URINE COLOR Yellow; URINE GLUCOSE (UA) Negative (NEGATIVE); URINE KETONE 1+ (NEGATIVE); URINE LEUK ESTERASE 1+ (NEGATIVE); URINE NITRITE Positive (NEGATIVE); URINE PROTEIN Trace (NEGATIVE); URINE UROBILINOGEN 4.0 E.U/dl mg/dL (0.2-1.0)
[2018-05-23 03:23] LABS: EPI CELLS FEW /HPF (0-5/HPF); URINE BACTERIA MANY /hpf (NEGATIVE); URINE RBC 20-25 /hpf (0-4); URINE WBC 30-40 /hpf (0-5)
[2018-05-23] MEDS: metFORMIN HCL 500 MG TABLET (FP) PO SCH ×2 (06:34→16:56)
[2018-05-23] MEDS: PRENATAL VITAMINS W/ FOLIC ACID TABLET (FP) PO SCH (09:39)
[2018-05-23] MEDS: LISINOPRIL 20 MG TABLET (FP) PO SCH (09:39)
[2018-05-23] MEDS: ATORVASTATIN CA 10 MG TABLET (FP) PO SCH (21:31)
[2018-05-23] MEDS: THIAMINE HCL 100 MG TABLET (FP) PO SCH (21:31)
[2018-05-24] MEDS: metFORMIN HCL 500 MG TABLET (FP) PO SCH ×2 (06:40→17:38)
[2018-05-24] MEDS: LISINOPRIL 20 MG TABLET (FP) PO SCH (09:56)
[2018-05-24] MEDS: PRENATAL VITAMINS W/ FOLIC ACID TABLET (FP) PO SCH (09:56)
--- NOTE | 2018-05-24 16:41 | PN ---
S Progress Note Note: Patient requesting that BGM be once daily. Review of prior BGM results supports patient's request. Will switch BGM's to [facility]BK.
[2018-05-24] MEDS: ATORVASTATIN CA 10 MG TABLET (FP) PO SCH (21:17)
[2018-05-24] MEDS: THIAMINE HCL 100 MG TABLET (FP) PO SCH (21:17)
[2018-05-25] MEDS: metFORMIN HCL 500 MG TABLET (FP) PO SCH ×2 (06:33→17:54)
[2018-05-25] MEDS: LISINOPRIL 20 MG TABLET (FP) PO SCH (09:55)
[2018-05-25] MEDS: PRENATAL VITAMINS W/ FOLIC ACID TABLET (FP) PO SCH (09:55)
[2018-05-25] MEDS: ATORVASTATIN CA 10 MG TABLET (FP) PO SCH (21:32)
[2018-05-25] MEDS: THIAMINE HCL 100 MG TABLET (FP) PO SCH (21:32)
[2018-05-26] MEDS: metFORMIN HCL 500 MG TABLET (FP) PO SCH ×2 (06:24→17:43)
[2018-05-26] MEDS: PRENATAL VITAMINS W/ FOLIC ACID TABLET (FP) PO SCH (10:25)
[2018-05-26] MEDS: LISINOPRIL 20 MG TABLET (FP) PO SCH (10:26)
[2018-05-26] MEDS: THIAMINE HCL 100 MG TABLET (FP) PO SCH (21:12)
[2018-05-26] MEDS: ATORVASTATIN CA 10 MG TABLET (FP) PO SCH (21:12)
[2018-05-27] MEDS: metFORMIN HCL 500 MG TABLET (FP) PO SCH ×2 (06:56→19:40)
[2018-05-27] MEDS: LISINOPRIL 20 MG TABLET (FP) PO SCH (10:18)
[2018-05-27] MEDS: PRENATAL VITAMINS W/ FOLIC ACID TABLET (FP) PO SCH (10:18)
[2018-05-27] MEDS: THIAMINE HCL 100 MG TABLET (FP) PO SCH (21:36)
[2018-05-27] MEDS: ATORVASTATIN CA 10 MG TABLET (FP) PO SCH (21:36)
[2018-05-28] MEDS: metFORMIN HCL 500 MG TABLET (FP) PO SCH (06:40)
[2018-05-28] MEDS: PRENATAL VITAMINS W/ FOLIC ACID TABLET (FP) PO SCH (10:24)
[2018-05-28] MEDS: LISINOPRIL 20 MG TABLET (FP) PO SCH (10:24)
[2018-05-28] MEDS: THIAMINE HCL 100 MG TABLET (FP) PO SCH (21:33)
[2018-05-28] MEDS: ATORVASTATIN CA 10 MG TABLET (FP) PO SCH (21:33)
[2018-05-28] MEDS: hydrOXYzine PAMOATE 50 MG CAPSULE (FP) PO PRN (21:34)
[2018-05-29] MEDS: metFORMIN HCL 500 MG TABLET (FP) PO SCH (06:52)
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
[2018-05-29] MEDS: LISINOPRIL 20 MG TABLET (FP) PO SCH (09:57)
[2018-05-29] MEDS: hydrOXYzine PAMOATE 50 MG CAPSULE (FP) PO PRN (09:57)
[2018-05-29] MEDS: PRENATAL VITAMINS W/ FOLIC ACID TABLET (FP) PO SCH (09:57)
[2018-05-29] MEDS: ATORVASTATIN CA 10 MG TABLET (FP) PO SCH (21:19)
[2018-05-29] MEDS: THIAMINE HCL 100 MG TABLET (FP) PO SCH (21:19)
[2018-05-29] MEDS: MELATONIN 5 MG TABLETS PO PRN (22:41)
[2018-05-30] MEDS: metFORMIN HCL 500 MG TABLET (FP) PO SCH (06:07)
[2018-05-30] MEDS: hydrOXYzine PAMOATE 50 MG CAPSULE (FP) PO PRN (09:44)
[2018-05-30] MEDS: LISINOPRIL 20 MG TABLET (FP) PO SCH (09:44)
[2018-05-30] MEDS: PRENATAL VITAMINS W/ FOLIC ACID TABLET (FP) PO SCH (09:44)
[2018-05-30] MEDS: ATORVASTATIN CA 10 MG TABLET (FP) PO SCH (21:25)
[2018-05-30] MEDS: MELATONIN 5 MG TABLETS PO PRN (21:25)
[2018-05-30] MEDS: THIAMINE HCL 100 MG TABLET (FP) PO SCH (21:25)
[2018-05-31] MEDS: metFORMIN HCL 500 MG TABLET (FP) PO SCH (06:18)
[2018-05-31] MEDS: LISINOPRIL 20 MG TABLET (FP) PO SCH (09:58)
[2018-05-31] MEDS: PRENATAL VITAMINS W/ FOLIC ACID TABLET (FP) PO SCH (09:58)
[2018-05-31] MEDS: MELATONIN 5 MG TABLETS PO PRN (21:18)
[2018-05-31] MEDS: ATORVASTATIN CA 10 MG TABLET (FP) PO SCH (21:18)
[2018-05-31] MEDS: THIAMINE HCL 100 MG TABLET (FP) PO SCH (21:18)
[2018-05-31] MEDS: HALOPERIDOL 5 MG TABLET (FP) PO SCH (21:19)
[2018-05-31] MEDS ORDERED: HALOPERIDOL 2 MG TABLET PO SCH (22:00)
[2018-06-01] MEDS: metFORMIN HCL 500 MG TABLET (FP) PO SCH (07:09)
[2018-06-01] MEDS: LISINOPRIL 20 MG TABLET (FP) PO SCH (10:47)
[2018-06-01] MEDS: PRENATAL VITAMINS W/ FOLIC ACID TABLET (FP) PO SCH (10:47)
[2018-06-01] MEDS ORDERED: PT OWN MED DRAWER 7, Y5N ONE (10:56)
[2018-06-01] MEDS: ATORVASTATIN CA 10 MG TABLET (FP) PO SCH (21:58)
[2018-06-01] MEDS: HALOPERIDOL 5 MG TABLET (FP) PO SCH (21:58)
[2018-06-01] MEDS: THIAMINE HCL 100 MG TABLET (FP) PO SCH (21:58)
[2018-06-01] MEDS: MELATONIN 5 MG TABLETS PO PRN (21:58)
[2018-06-02] MEDS: metFORMIN HCL 500 MG TABLET (FP) PO SCH (07:22)
[2018-06-02] MEDS: LISINOPRIL 20 MG TABLET (FP) PO SCH (10:12)
[2018-06-02] MEDS: PRENATAL VITAMINS W/ FOLIC ACID TABLET (FP) PO SCH (10:12)
[2018-06-02] MEDS: MELATONIN 5 MG TABLETS PO PRN (21:20)
[2018-06-02] MEDS: ATORVASTATIN CA 10 MG TABLET (FP) PO SCH (21:20)
[2018-06-02] MEDS: THIAMINE HCL 100 MG TABLET (FP) PO SCH (21:20)
[2018-06-02] MEDS: HALOPERIDOL 5 MG TABLET (FP) PO SCH (21:20)
[2018-06-03] MEDS: metFORMIN HCL 500 MG TABLET (FP) PO SCH (06:06)
[2018-06-03] MEDS: PRENATAL VITAMINS W/ FOLIC ACID TABLET (FP) PO SCH (10:08)
[2018-06-03] MEDS: LISINOPRIL 20 MG TABLET (FP) PO SCH (10:08)
[2018-06-03] MEDS: ATORVASTATIN CA 10 MG TABLET (FP) PO SCH (21:41)
[2018-06-03] MEDS: MELATONIN 5 MG TABLETS PO PRN (21:41)
[2018-06-03] MEDS: THIAMINE HCL 100 MG TABLET (FP) PO SCH (21:41)
[2018-06-03] MEDS: HALOPERIDOL 5 MG TABLET (FP) PO SCH (21:42)
[2018-06-04] MEDS: metFORMIN HCL 500 MG TABLET (FP) PO SCH (06:50)
[2018-06-04] MEDS: PRENATAL VITAMINS W/ FOLIC ACID TABLET (FP) PO SCH (10:36)
[2018-06-04] MEDS: LISINOPRIL 20 MG TABLET (FP) PO SCH (10:36)
[2018-06-04] MEDS: THIAMINE HCL 100 MG TABLET (FP) PO SCH (21:24)
[2018-06-04] MEDS: HALOPERIDOL 5 MG TABLET (FP) PO SCH (21:24)
[2018-06-04] MEDS: ATORVASTATIN CA 10 MG TABLET (FP) PO SCH (21:24)
[2018-06-04] MEDS: MELATONIN 5 MG TABLETS PO PRN (21:25)
--- NOTE | 2018-06-05 06:08 | PN ---
[facility] Progress Note Note: Patient is discharged today. Script for 30 days supply of Haldol 5 mg po HS is electronically transmitted to [facility] at [address] [place] [id number]
[2018-06-05] MEDS: metFORMIN HCL 500 MG TABLET (FP) PO SCH (06:17)
[2018-06-05 07:09] VITALS: BP 146/89; PULSE 83; TEMP 98.8
--- NOTE | 2018-06-05 08:23 | PN ---
S Progress Note (SOAP) Subjective: Mr. Olivares is being discharged today Objective: 06/05/18 08:25 No Neurological deficits, CN2-12 intact,Lungs clear, Heart sounds regular, abdomen soft, non-tender, obese, +BS Assessment: 06/05/18 08:27 Medically stable for discharge. Discharge Dx: Diabetes, type 2 HTN, ETOH dependence, chronic Cocaine dependence, chronic Plan: Patient is medically stable for discharged. Aftercare will be at [facility]. States he has a primary care provider and will be making an appointment. Prescription sent.
[2018-06-05] MEDS: PRENATAL VITAMINS W/ FOLIC ACID TABLET (FP) PO SCH (09:06)
[2018-06-05] MEDS: LISINOPRIL 20 MG TABLET (FP) PO SCH (09:06)
== END 2018-06-05 09:10 | disposition home or self-care (01) | DRG 895 ==
LOC: YASAS 15:37 → Y3W 19:34
PROVIDERS: ADMIT Neuromusculoskeletal Medicine & OMM; ATTEND Neuromusculoskeletal Medicine & OMM
PROC: HZ42ZZZ Group Counseling for Substance Abuse Treatment, Cognitive-Behavioral (ICD-10-PCS; principal; 2018-05-22)
DX: F10.20 Alcohol dependence, uncomplicated (principal); F14.20 Cocaine dependence, uncomplicated; F19.280 Other psychoactive substance dependence with psychoactive substance-induced anxiety disorder; F19.282 Other psychoactive substance dependence with psychoactive substance-induced sleep disorder; F17.210 Nicotine dependence, cigarettes, uncomplicated; F20.9 Schizophrenia, unspecified; I10 Essential (primary) hypertension; E78.5 Hyperlipidemia, unspecified; E11.9 Type 2 diabetes mellitus without complications; Z79.84 Long term (current) use of oral hypoglycemic drugs; E66.9 Obesity, unspecified; Z68.32 Body mass index [BMI] 32.0-32.9, adult; Z88.2 Allergy status to sulfonamides
CPT/HCPCS: 71046-TC-FY; 81003; 82962